=== PATIENT | female | born 1990 | race Caucasian/White ===

== ENCOUNTER 2020-06-15 15:58 | Outpatient (CLI) | payer BC, SELFPAY ==
--- NOTE | ~2020-06-15 | US_ITS ---
EXAMINATION: US pelvic complete w TV DATE: 06/15/2020 16:36 INDICATION: Abnormal uterine bleeding Comparison:No prior studies for comparison. TECHNIQUE: Multiple transabdominal and endovaginal sonographic images of the pelvis performed. FINDINGS: The uterus measures 7.2 x 2.8 x 3.5 cm. The endometrial complex measures 4 mm. The right ovary measures 4.3 x 3.9 x 3.8 cm and the left ovary measures 2.6 x 1.1 x 1.2 cm. There is a 3.7 cm right ovarian cyst. There are small follicles in each ovary. There is no free fluid in the pelvis. There are no abnormal masses seen on either side. IMPRESSION: 1. Right ovarian cyst measuring 3.7 cm. Reviewed, dictated and finalized at location B.
[2020-06-15 17:10] LABS: Hematocrit 37.2 % (37.0-47.0); Hemoglobin 12.2 g/dL (12.0-15.0); Mean Corpuscular HGB Conc 32.8 g/dl (32-36); Mean Corpuscular Hemoglobin 27.2 pg (26-34); Mean Corpuscular Volume 82.9 fl (80-100); Mean Platelet Volume 10.7 fl (7.4-10.4); Platelet Count Result 258 k/mm3 (150-375); Red Blood Count 4.49 M/mm3 (4.2-5.4); Red Cell Distribution Width 13.7 % (11.5-14.5); White Blood Count 9.7 K/mm3 (4.5-10.0)
[2020-06-15 18:06] LABS: Free T4 Free Thyroxine 1.09 ng/mL (0.78-2.19)
== END 2020-06-15 15:59 | disposition home or self-care (01) ==
PROVIDERS: PCP Obstetrics & Gynecology; Visit Provider Obstetrics & Gynecology
DX: N93.9 Abnormal uterine and vaginal bleeding, unspecified (principal)
CPT/HCPCS: 36415; 76830; 76856; 84146; 84439; 84443; 85027